=== PATIENT | female | born 1990 | race Caucasian/White ===

== ENCOUNTER 2021-05-22 11:41 | Emergency (ER) | payer OTHER, SELFPAY ==
[2021-05-22 11:50] VITALS: BP 135/82; PULSE 104; RESP 14; TEMP 37; O2SAT 98
[2021-05-22] MEDS: SODIUM CHLORIDE 0.9% 1,000 ML 1000 ML IV ×2 (12:03→12:46)
[2021-05-22] MEDS: ONDANSETRON 4 MG/2 ML INJ IV (12:03)
[2021-05-22 12:08] LABS: Add Manual Diff / Slide Review NO; Basophils Absolute Auto 100 /uL (0-100); Basophils Percent Auto 0.4 % (0-2); Eosinophils Absolute Auto 0 /uL (0-450); Eosinophils Percent Auto 0.3 % (2-4); Hematocrit 41.2 % (36-46); Hemoglobin 13.9 g/dL (12.0-16.0); Lymphocytes Absolute Auto 1700 /uL (1100-4500); Lymphocytes Percent Auto 13.4 % (25-40); Mean Corpuscular HGB Conc 33.7 % (30-36); Mean Corpuscular Hemoglobin 30.2 PG (26-34); Mean Corpuscular Volume 89.5 fL (80-100); Monocytes Absolute Auto 700 /uL (0-900); Monocytes Percent Auto 5.6 % (3-14); Neutrophils Absolute Auto 10500 /uL (1500-7000); Neutrophils Percent Auto 80.3 % (50-75); Platelet Count 267 X10^3/uL (150-400); Red Cell Distribution Width 12.8 % (11.6-14.8)
[2021-05-22 12:30] LABS: Alanine Aminotransferase 37 IU/L (<35); Albumin 4.3 g/dL (3.5-5.0); Albumin Globulin Ratio 1.5 (1.0-2.8); Alkaline Phosphatase 44 U/L (38-126); Aspartate Aminotransferase 45 IU/L (14-36); BUN Creatinine Ratio 16.7 (6-22); Bilirubin Total 1.4 mg/dL (0.2-1.3); Blood Urea Nitrogen 9 mg/dL (7-17); Calcium 9.4 mg/dL (8.4-10.2); Carbon Dioxide 24 mmol/L (22-32); Chloride 105 mmol/L (98-107); Estimated Glomerular Filt Rate > 60.0 mL/min (>60); Globulin 2.8 g/dL (1.7-4.1); Glucose 113 mg/dL (70-100); HEMOLYSIS 21 (0-50); Potassium 4.1 mmol/L (3.4-5.1); Sodium 136 mmol/L (137-145); Total Protein 7.1 g/dL (6.3-8.2)
--- NOTE | 2021-05-22 13:20 | ED.NAVMDI ---
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 Comes in for further evaluation. She describes no chest pain, there was no blood in any of the emesis, she has had no diarrhea. Abdominal pain related to the muscles used for vomiting. Neurologically completely appropriate Related Data Home Medications Medication Instructions Recorded Confirmed No Known Home Medications 05/22/21 05/22/21 Allergies Allergy/AdvReac Type Severity Reaction Status Date / Time No Known Drug Allergies Allergy Verified 05/22/21 11:52 Review of Systems Review of Systems Narrative: Remainder of complete review of systems is otherwise unremarkable except for that included in the HPI. Patient History Social History Smoking Status: Never smoker Smoking Status: Never smoker alcohol intake frequency: 0-2 drinks per day Substance Use Type: does not use Exam Narrative Exam Narrative: General: Healthy appearing, in mild distress. Able to give a complete and coherent history. Well-nourished well-developed HEENT: Dry mucous membranes, normal sclera with reactive pupils, Neck: No cervical adenopathy, supple Respiratory: Lungs are clear to auscultation, no wheezing no rales no rhonchi. Full and symmetrical air movement Cardiac: Mild tachycardia otherwise Regular rate and rhythm no murmurs no bruits Abdomen: Soft, mildly tender in epigastrium otherwise nontender, good bowel tones, no flank pain Skin: Pale but, no rashes Neurologic: Grossly neurologically intact with no obvious asymmetries or abnormalities Extremities: No trauma, well perfused Psych: Cooperative, appropriate insight and affect Initial Vital Signs Initial Vital Signs: Vital Signs Temperature 98.6 F 05/22/21 11:50 Pulse Rate 104 H 05/22/21 11:50 Respiratory Rate 14 05/22/21 11:50 Blood Pressure 135/82 05/22/21 11:50 Pulse Oximetry 98 05/22/21 11:50 Course Orders Ordered: ED Orders 05/22/21 12:00 Complete Blood Count AUTO DIFF Stat Comprehensive Metabolic Panel Stat Sodium Chloride (Normal Saline 0.9%) 1,000 mls @ 1,000 mls/hr IV BOLUS ONE Stop: 05/22/21 13:44 Last Admin: 05/22/21 12:46 Dose: 1,000 mls/hr Documented by: JYOTI Discontinued Medications Sodium Chloride (Normal Saline 0.9%) 1,000 mls @ 1,000 mls/hr IV BOLUS ONE Stop: 05/22/21 12:51 Last Infusion: 05/22/21 12:45 Dose: 0 mls/hr Documented by: Admin: 05/22/21 12:03 Dose: 1,000 mls/hr Documented by: JYOTI Ondansetron HCl (Ondansetron 4 Mg/2 Ml Inj) 4 mg IV NOW ONE Stop: 05/22/21 11:53 Last Admin: 05/22/21 12:03 Dose: 4 mg Documented by: JYOTI Ondansetron HCl (Ondansetron 4 Mg Odt Prepack) 1 bottle MISC SEEINSTR ONE Stop: 05/22/21 12:29 Last Admin: 05/22/21 13:28 Dose: 1 bottle Documented by: Vital Signs Vital signs: Vital Signs - 8 hr 05/22/21 11:50 Temperature 98.6 F Pulse Rate 104 H Respiratory Rate 14 Blood Pressure 135/82 Pulse Oximetry 98 MDM - Nausea/Vomiting/Diarrhea Lab Data Result diagrams: 05/22/21 12:00 05/22/21 12:00 Labs: Lab Results 05/22/21 05/22/21 Range/Units 12:00 12:00 WBC 13.0 H (4.5-11.0) X10^3/uL RBC 4.60 (4.0-5.2) X10^6/uL Hgb 13.9 (12.0-16.0) g/dL Hct 41.2 (36-46) % MCV 89.5 (80-100) fL MCH 30.2 (26-34) PG MCHC 33.7 (30-36) % RDW 12.8 (11.6-14.8) % Plt Count 267 (150-400) X10^3/uL Neut % (Auto) 80.3 H (50-75) % Lymph % (Auto) 13.4 L (25-40) % [place] % (Auto) 5.6 (3-14) % Eos % (Auto) 0.3 L (2-4) % Baso % (Auto) 0.4 (0-2) % Neut # (Auto) 65878 H (4504-4202) /uL Lymph # (Auto) 1700 (7361-8340) /uL Campbell # (Auto) 700 (0-900) /uL Eos # (Auto) 0 (0-450) /uL Baso # (Auto) 100 (0-100) /uL Sodium 136 L (137-145) mmol/L Potassium 4.1 (3.4-5.1) mmol/L Chloride 105 (98-107) mmol/L Carbon Dioxide 24 (22-32) mmol/L BUN 9 (7-17) mg/dL Creatinine 0.54 (0.52-1.04) mg/dL Estimated GFR > 60.0 (>60) mL/min BUN/Creatinine Ratio 16.7 (6-22) Glucose 113 H (70-100) mg/dL Calcium 9.4 (8.4-10.2) mg/dL Total Bilirubin 1.4 H (0.2-1.3) mg/dL AST 45 H (14-36) IU/L ALT 37 H (<35) IU/L Alkaline Phosphatase 44 (38-126) U/L Total Protein 7.1 (6.3-8.2) g/dL Albumin 4.3 (3.5-5.0) g/dL Globulin 2.8 (1.7-4.1) g/dL Albumin/Globulin Ratio 1.5 (1.0-2.8) Point of Care Testing Test Results Negative Urine Dip Bedside Urine Glucose Negative Bedside Urine Bilirubin - Negative Bedside Urine Ketone +/- 5 Urine Specific [place] 7.5 Bedside Urine Occult Blood - Negative Bedside Urine pH 7.5 Bedside Urine Protein - Negative Bedside Urine Urobilinogen - Negative Bedside Urine Nitrite - Negative Bedside Urine Leukocytes - Negative Esterase MDM Narrative Medical decision making narrative: 30-year-old woman with too much alcohol consumed last night, dehydration vomiting nausea and dizziness. Dramatically improved after 2 L of fluid and Zofran. She is not orthostatic, there is no signs of GI bleeding or other complications of her emesis. She is safe for discharge home. Discharge Plan Departure Patient Disposition: Home Clinical Impression: Acute vomiting Toxic effect of alcohol, unintentional Qualifiers: Encounter type: initial encounter Qualified Code(s): T51.91XA - Toxic effect of unspecified alcohol, accidental (unintentional), initial encounter Instructions: DI for Dehydration -- Adult Activity Restrictions/Additional Instructions: I am so sorry you needed to come in today You received 2 L of fluid and nausea medicine in the emergency department. You are doing much better. I would recommend avoiding alcohol for the next number of days to allow your body to completely heal. I hope the wedding is wonderful today. Prescriptions: No Action No Known Home Medications RF: 0
[2021-05-22] MEDS: ONDANSETRON 4 MG ODT PREPACK 1 BOTTLE MISC (13:28)
[2021-05-22 13:31] VITALS: BP 118/78; PULSE 78; RESP 15; O2SAT 99
== END 2021-05-22 13:34 | disposition home or self-care (01) ==
PROVIDERS: Emergency Provider Emergency Medicine
DX: T51.91XA Toxic effect of unspecified alcohol, accidental (unintentional), initial encounter (principal); R11.2 Nausea with vomiting, unspecified; R42 Dizziness and giddiness
CPT/HCPCS: 36415; 80053; 81003; 81025; 85025; 96361; 96374; 99284; J2405